=== PATIENT | female | born 1960 | race Caucasian/White ===

== ENCOUNTER → 2016-07-28 | Outpatient (CLI) | payer BC ==
[~2016-07-28] MED LIST: CALC600T36 PO; DOCU-94 PO; FAMO1TAB47 PO; HYT/2 PO; MAGN1CAP4 PO; MRLP17 PO; MULT-663 PO; OXYC1TAB3 PO; SPIR50TA2 PO
--- NOTE | 2016-07-28 11:31 | DIAGNOSTIC IMAGING REPORT ---
RIGHT HIP UNILATERAL 2 VIEWS CLINICAL HISTORY: Right hip pain COMPARISON: None. DISCUSSION: No acute fractures are visualized. There are no erosive or destructive changes. There is a peritrochanteric calcification. This may indicate tendinitis. IMPRESSION: 1. No acute fractures 2. No destructive lesions 3. Peritrochanteric calcification Electronically signed by: Milton Figueroa M.D. 07/28/2016 11:29 AM Dictated Date/Time: 07/28/2016 11:28 AM
== END | disposition home or self-care (01) ==
LOC: C.RAD1850 11:10
PROVIDERS: ATTEND Nurse Practitioner Family
DX: M25.551 Pain in right hip (principal); M25.60 Stiffness of unspecified joint, not elsewhere classified

== ENCOUNTER 2016-10-04 19:39 | Emergency (ER) | payer BC ==
[~2016-10-04] VITALS: Ht 165.1 cm; Wt 56.7 kg
[2016-10-04 19:47] VITALS: TEMP 36.9; Ht 165.1 cm; Wt 56.7 kg
[2016-10-04 21:11] VITALS: O2SAT 98
[2016-10-04 21:20] LABS: BASO % 0.9 %; BASO ABS # 0.05 K/uL (0-0.2); COMPLETE YES; EOS % 0.5 %; HEMATOCRIT 39.4 % (37-47); LYMPH ABS # 1.99 K/uL (1.2-3.4); MEAN CELL VOLUME 88.9 fL (80-100); MEAN CORPUSCULAR HEMOGLOBIN 32.3 pg (25-34); MEAN CORPUSCULAR HGB CONC 36.3 g/dl (32-36); MEAN PLATELET VOLUME 8.5 fL (7.4-10.4); MONO % 7.7 %; NEUT % 56.9 %; PLATELET COUNT 291 K/uL (130-400); RED BLOOD COUNT 4.43 M/uL (4.2-5.4); WHITE BLOOD COUNT 5.85 K/uL (4.8-10.8)
--- NOTE | 2016-10-04 21:26 | DIAGNOSTIC IMAGING REPORT ---
CHEST ONE VIEW PORTABLE CLINICAL HISTORY: Evaluate Fever/Sepsis dyspnea COMPARISON STUDY: 04/24/2016 FINDINGS: The bones soft tissues and hemidiaphragms are normal. The cardiomediastinal silhouette is normal. The lungs are clear. The pulmonary vasculature is normal. IMPRESSION: Negative chest. Electronically signed by: Elroy Lares M.D. 10/04/2016 9:25 PM Dictated Date/Time: 10/04/2016 9:25 PM
[2016-10-04 21:45] LABS: ALT/SGPT 21 U/L (12-78); BLOOD UREA NITROGEN 13 mg/dl (7-18); BUN/CREATININE RATIO 15.4 (10-20); CALCIUM 9.6 mg/dl (8.5-10.1); CARBON DIOXIDE 26 mmol/L (21-32); CHLORIDE 102 mmol/L (98-107); CREATININE 0.81 mg/dl (0.60-1.20); GLUCOSE 96 mg/dl (70-99); SODIUM 137 mmol/L (136-145)
[2016-10-04 21:54] LABS: ALKALINE PHOSPHATASE 100 U/L (45-117)
--- NOTE | 2016-10-04 22:03 | EMERGENCY ROOM VISIT NOTE ---
History Report prepared by Dao: Lisy Car Under the Supervision of: Dr. Fredrick Long D.O. First contact with patient: 20:59 Chief Complaint: CHEST PAIN Stated Complaint: PAIN AND BURNING IN CHEST Nursing Triage Summary: pt states she had a couple sharp pains in her chest a couple hours ago then has had some burning. History of Present Illness The patient is a 56 year old female who presents to the Emergency Room with complaints of resolving chest pain beginning 4 hours prior to arrival. She states that the pain began as a few sharp sensations in her chest and then became a burning sensation. The patient states that the sharpness has resolved and she is experiencing slight burning sensation still. She has been experiencing right sided jaw pain for several weeks. She denies shortness of breath, abdominal pain, leg pain or swelling to lower extremities. The patient is currently taking medication for acid reflux. 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 Review of Systems See HPI for pertinent positives & negatives. A total of 10 systems reviewed and were otherwise negative. Past Medical & Surgical Medical Problems: (1) Acid reflux Family History Patient reports no known family medical history. Social History Smoking Status: Never Smoker Smokeless Tobacco Use: No Marital Status: Housing Status: lives with family Current/Historical Medications Scheduled Calcium W/ Vitamin D (Calcium), 1 TAB PO DAILY Docusate Sodium (Colace), 2 CAP PO QAM Magnesium Oxide (Magnesium), 500 MG PO DAILY Multiple Minerals W/ Vitamins (Citracal Plus), 1 TAB PO DAILY Polyethylene (Miralax), 17 GM PO DAILY Spironolactone (Aldactone), 50 MG PO BID Terazosin Hcl (Hytrin), 2 MG PO DAILY Allergies Coded Allergies: No Known Allergies (Unverified , 10/04/16) Physical Exam Vital Signs Date Time Temp Pulse Resp B/P Pulse Ox O2 Delivery O2 Flow Rate FiO2 10/04/16 21:24 81 10/04/16 21:23 77 20 135/87 100 Room Air 10/04/16 21:11 98 Room Air 10/04/16 19:47 36.9 85 18 151/88 100 Room Air Physical Exam CONSTITUTIONAL/VITAL SIGNS: Reviewed / noted above. GENERAL: Non-toxic in appearance. INTEGUMENTARY: Warm, dry, and [place]. HEAD: Normocephalic. EYES: without scleral icterus or trauma. ENT/OROPHARYNX: clear and moist. LYMPHADENOPATHY/NECK: Is supple without lymphadenopathy or meningismus. RESPIRATORY: Lungs clear and equal. CARDIOVASCULAR: Regular rate and rhythm. GI/ABDOMEN: Soft and nontender. No organomegaly or pulsatile mass. No rebound or guarding. Normal bowel sounds. EXTREMITIES: Warm and well perfused. BACK: No CVA tenderness. NEUROLOGICAL: Intact without focal deficits. PSYCHIATRIC: normal affect. MUSCULOSKELETAL: Normally developed with good muscle tone. Medical Decision & Procedures ER Provider Diagnostic Interpretation: X ray results and stated below per my interpretation and radiology interpretation. CHEST ONE VIEW PORTABLE CLINICAL HISTORY: Evaluate Fever/Sepsis dyspnea COMPARISON STUDY: 04/24/2016 FINDINGS: The bones soft tissues and hemidiaphragms are normal. The cardiomediastinal silhouette is normal. The lungs are clear. The pulmonary vasculature is normal. IMPRESSION: Negative chest. Electronically signed by: Elroy Lares M.D. 10/04/2016 9:25 PM Dictated Date/Time: 10/04/2016 9:25 PM Laboratory Results 10/04/16 21:10 Red Blood Count 4.43, Mean Corpuscular Volume 88.9, Mean Corpuscular Hemoglobin 32.3, Mean Corpuscular Hemoglobin Concent 36.3, Mean Platelet Volume 8.5, Neutrophils (%) (Auto) 56.9, Lymphocytes (%) (Auto) 34.0, Monocytes (%) (Auto) 7.7, Eosinophils (%) (Auto) 0.5, Basophils (%) (Auto) 0.9, Neutrophils # (Auto) 3.33, Lymphocytes # (Auto) 1.99, Monocytes # (Auto) 0.45, Eosinophils # (Auto) 0.03, Basophils # (Auto) 0.05 10/04/16 21:10 10/04/16 21:46 Test 10/04/16 21:10 10/04/16 21:46 White Blood Count 5.85 K/uL (4.8-10.8) Red Blood Count 4.43 M/uL (4.2-5.4) Hemoglobin 14.3 g/dL (12.0-16.0) Hematocrit 39.4 % (37-47) Mean Corpuscular Volume 88.9 fL (80-100) Mean Corpuscular Hemoglobin 32.3 pg (25-34) Mean Corpuscular Hemoglobin Concent 36.3 g/dl (32-36) Platelet Count 291 K/uL (130-400) Mean Platelet Volume 8.5 fL (7.4-10.4) Neutrophils (%) (Auto) 56.9 % Lymphocytes (%) (Auto) 34.0 % Monocytes (%) (Auto) 7.7 % Eosinophils (%) (Auto) 0.5 % Basophils (%) (Auto) 0.9 % Neutrophils # (Auto) 3.33 K/uL (1.4-6.5) Lymphocytes # (Auto) 1.99 K/uL (1.2-3.4) Monocytes # (Auto) 0.45 K/uL (0.11-0.59) Eosinophils # (Auto) 0.03 K/uL (0-0.5) Basophils # (Auto) 0.05 K/uL (0-0.2) RDW Standard Deviation 39.4 fL (36.4-46.3) RDW Coefficient of Variation 12.2 % (11.5-14.5) Immature Granulocyte % (Auto) 0.0 % Immature Granulocyte # (Auto) 0.00 K/uL (0.00-0.02) Anion Gap 9.0 mmol/L (3-11) Est Creatinine Clear Calc Drug Dose 71.1 ml/min Estimated GFR () 95.4 Estimated GFR (Non- 82.3 BUN/Creatinine Ratio 15.4 (10-20) Calcium Level 9.6 mg/dl (8.5-10.1) Total Bilirubin 0.3 mg/dl (0.2-1) Alanine Aminotransferase (ALT/SGPT) 21 U/L (12-78) Alkaline Phosphatase 100 U/L (45-117) Creatine Kinase MB 0.6 ng/ml (0.5-3.6) Creatine Kinase MB Ratio (0-3.0) Troponin I < 0.015 ng/ml (0-0.045) Total Protein 8.1 gm/dl (6.4-8.2) Albumin 4.4 gm/dl (3.4-5.0) Lipase 310 U/L (73-393) Thyroid Stimulating Hormone (TSH) 2.430 uIu/ml (0.300-4.500) Prothrombin Time 10.7 SECONDS (9.0-12.0) Prothromb Time International Ratio 1.0 (0.9-1.1) Activated Partial Thromboplast Time 28.4 SECONDS (21.0-31.0) Partial Thromboplastin Ratio 1.1 Laboratory results as stated above per my review. ECG Indication: chest pain Rate (beats per minute): 77 Rhythm: normal sinus Findings: no acute ischemic change, no ectopy ED Course 2107: Previous medical records were reviewed. The patient was evaluated in room A9. A complete history and physical examination was performed. 2211: On reevaluation, the patient is hemodynamically stable. I discussed the results and findings with the patient. She verbalized agreement of the treatment plan. She was discharged home. Medical Decision the differential was considered includes acute myocardial infarction, acute coronary syndrome, myocarditis, pericarditis, pericardial effusions /tamponad, esophageal perforation, thoracic aortic dissection, pulmonary embolism, pneumonia, pneumothorax, pancreatitis, shingles, acute cholecystitis, perforated abdominal viscus. This is a 56 female who presents to the ED with a chief complaint of chest discomfort. The patient states that her symptoms started around 5 PM. She states that it was a sharp pain in the left mid chest area as well as a burning sensation. She denied any associated symptoms such as shortness of breath, fevers, palpitations, lightheadedness or dizziness. She denies any family history or personal history of cardiac disease. Eyes any respiratory for DVT. Her vital signs are normal. Physical exam was normal as well. EKG shows a normal sinus rhythm without ectopy or acute injury. CBC is normal. A chest x- ray did not show acute disease. Blood work including CBC, chemistry panel and troponin were normal. The patient was told results the test per she is felt to be stable for discharge and outpatient follow-up. Impression Primary Impression: Intermittent left-sided chest pain Scribe Attestation The scribe's documentation has been prepared under my direction and personally reviewed by me in its entirety. I confirm that the note above accurately reflects all work, treatment, procedures, and medical decision making performed by me. Departure Information Dispostion Home / Self-Care Referrals Samanta Briceno (PCP) Forms HOME CARE DOCUMENTATION FORM, IMPORTANT VISIT INFORMATION Patient Instructions Chest Pain - [facility], [facility] Additional Instructions Follow-up with your doctor for further care and evaluation in 1-2 days if symptoms persist. Return to the emergency department for worsening or new symptoms or any concerns. You have been examined and treated today on an emergency basis only. This is not a substitute for, or an effort to provide, complete comprehensive medical care. It is impossible to recognize and treat all injuries or illnesses in a single emergency department visit. It is therefore important that you follow up closely with your doctor. Call as soon as possible for an appointment.
[2016-10-04 22:11] LABS: PARTIAL THROMBOPLASTIN RATIO 1.1; PROTHROMBIN TIME (PATIENT) 10.7 SECONDS (9.0-12.0)
[2016-10-04] MEDS ORDERED: MRLP17 PO (22:11)
[2016-10-04] MEDS ORDERED: MAGN1CAP4 PO (22:11)
[2016-10-04] MEDS ORDERED: MULT-663 PO (22:11)
[2016-10-04] MEDS ORDERED: SPIR50TA2 PO (22:11)
[2016-10-04] MEDS ORDERED: CALC600T36 PO (22:11)
[2016-10-04] MEDS ORDERED: HYT/2 PO (22:11)
[2016-10-04] MEDS ORDERED: DOCU-94 PO (22:11)
[2016-10-04 22:16] LABS: AST/SGOT 15 U/L (15-37)
[2016-10-04 22:28] VITALS: BP 118/70; PULSE 76; O2SAT 98
== END 2016-10-04 22:29 | disposition home or self-care (01) ==
LOC: C.EDB 19:40 → C.EDC 22:29
DX: R07.89 Other chest pain (principal); K21.9 Gastro-esophageal reflux disease without esophagitis

== ENCOUNTER → 2016-10-20 | Outpatient (CLI) | payer BC | END | disposition home or self-care (01) | LOC: C.PAPS 16:37 | PROVIDERS: ATTEND Obstetrics & Gynecology | DX: Z01.419 Encounter for gynecological examination (general) (routine) without abnormal findings (principal) ==

== ENCOUNTER 2016-12-27 18:02 | Emergency (ER) | payer BC ==
[~2016-12-27] VITALS: Ht 165.1 cm; Wt 58.1 kg
[~2016-12-27 18:02] MED LIST changes: -FAMO1TAB47 PO; -OXYC1TAB3 PO
[2016-12-27 18:05] VITALS: TEMP 36.5; Ht 165.1 cm; Wt 58.1 kg
[2016-12-27] MEDS ORDERED: OXYCODONE HCL IR 5 MG TAB (IMMEDIATE RELEASE) PO STA (18:32)
--- NOTE | 2016-12-27 19:33 | DIAGNOSTIC IMAGING REPORT ---
RIGHT WRIST MIN 3 VIEWS ROUTINE CLINICAL HISTORY: Right wrist pain status post trauma COMPARISON: None. DISCUSSION: No acute fractures or dislocations are visualized. There is a longitudinal lucency within the distal radius which likely is developmental. If the patient has persistent pain, repeat study in 7-10 days is recommended. IMPRESSION: No acute fractures or dislocations identified. Longitudinal lucency within the distal radius likely developmental. If the patient has persistent pain, then repeat radiography in 7-10 days would be recommended. Electronically signed by: Milton Figueroa M.D. 12/27/2016 7:32 PM Dictated Date/Time: 12/27/2016 7:31 PM
--- NOTE | 2016-12-27 19:34 | DIAGNOSTIC IMAGING REPORT ---
RIGHT HUMERUS MIN 2 VIEWS ROUTINE CLINICAL HISTORY: Right upper arm pain status post trauma COMPARISON: None. DISCUSSION: There is an acute fracture through the greater tuberosity. No dislocation is visualized. IMPRESSION: Acute proximal humeral fracture involving the greater tuberosity. Electronically signed by: Milton Figueroa M.D. 12/27/2016 7:33 PM Dictated Date/Time: 12/27/2016 7:32 PM
--- NOTE | 2016-12-27 19:35 | DIAGNOSTIC IMAGING REPORT ---
RIGHT SHOULDER MIN 2 VIEWS ROUTINE CLINICAL HISTORY: Right shoulder pain status post trauma COMPARISON: None. DISCUSSION: There is an acute proximal humeral fracture involving the greater tuberosity. There is no dislocation. IMPRESSION: Acute proximal humeral fracture involving the greater tuberosity Electronically signed by: Milton Figueroa M.D. 12/27/2016 7:34 PM Dictated Date/Time: 12/27/2016 7:33 PM
--- NOTE | 2016-12-27 19:36 | DIAGNOSTIC IMAGING REPORT ---
RIGHT KNEE 2 VIEWS CLINICAL HISTORY: Right knee pain status post trauma COMPARISON: None. DISCUSSION: No fractures or dislocations are visualized. There is no radiographic evidence of a joint effusion. IMPRESSION: No fractures identified. Electronically signed by: Milton Figueroa M.D. 12/27/2016 7:35 PM Dictated Date/Time: 12/27/2016 7:34 PM
--- NOTE | 2016-12-27 19:42 | EMERGENCY ROOM VISIT NOTE ---
ED Visit Note First contact with patient: 18:24 Staff note: I have reviewed the Patients chart and have discussed this case with my PA. I generally agree with the ED note and findings.
[2016-12-27] MEDS ORDERED: OXYC1TAB3 PO (19:59)
[2016-12-27] MEDS ORDERED: OXYCODONE IR HOME PACK PO ONE (20:00)
[2016-12-27 20:21] VITALS: BP 107/72; PULSE 72; O2SAT 97
--- NOTE | 2016-12-28 00:37 | EMERGENCY ROOM VISIT NOTE ---
History First contact with patient: 18:23 Chief Complaint: SHOULDER PAIN Stated Complaint: FELL HARD ON RT SHOULDER,CUT RT HAND/KNEE & RT ARM History of Present Illness The patient is a 56 year old female who presents to the Emergency Room with complaints of fall that occurred about 45 minutes prior to arrival. The patient states that she was coming down a paved hill, when she slipped, fell, and primarily landed onto her right side. She did not strike her head or lose consciousness. Most of her discomfort is in her right shoulder. The patient has abrasions to her hand and knee on the right as well. She rates her current discomfort a 7/10. She is not having numbness or paresthesias. No difficulty breathing. She cannot move her right arm because of pain. She does not have previous injury to the right shoulder before today. Review of Systems More than 10 systems were reviewed and otherwise negative with the exception of history of present illness. Past Medical/Surgical History Medical Problems: (1) Acid reflux Family History Patient reports no known family medical history. No pertinent family history Social History Smoking Status: Never Smoker Marital Status: Housing Status: lives with family Current/Historical Medications Scheduled Calcium W/ Vitamin D (Calcium), 1 TAB PO DAILY Docusate Sodium (Colace), 2 CAP PO QAM Magnesium Oxide (Magnesium), 500 MG PO DAILY Oxycodone Immediate Rel Tab (Roxicodone Ir), 1-2 TAB PO Q6 Polyethylene (Miralax), 17 GM PO DAILY Spironolactone (Aldactone), 50 MG PO BID Terazosin Hcl (Hytrin), 2 MG PO DAILY Allergies Coded Allergies: Doxycycline (Unverified Adverse Reaction, Intermediate, UPSET STOMACH, 06/04) Physical Exam Vital Signs Date Time Temp Pulse Resp B/P (MAP) Pulse Ox O2 Delivery O2 Flow Rate FiO2 12/27/16 20:21 72 16 107/72 97 Room Air 12/27/16 18:05 36.5 62 20 129/86 Room Air Pain Rating (0-10): 7.0 Physical Exam VITALS: Vitals are noted on the nurse's note and reviewed by myself. Vital signs stable. GENERAL: Well-developed, well-nourished, white female who is uncomfortable but not toxic. HEAD: Normocephalic atraumatic. EARS: External ear normal. External auditory canals clear, tympanic membranes pearly kapoor without erythema or effusion bilaterally. EYES: Pupils equal round and reactive to light and accommodation. Conjunctivae without injection, sclerae without icterus. Extraocular movements intact. NOSE: Patent, turbinates without inflammation or discharge. MOUTH: Mucous membranes moist. Tonsils are not enlarged. Pharynx without erythema, blood, or exudate. Uvula midline. Airway patent. NECK: Supple without nuchal rigidity. No lymphadenopathy. No thyromegaly. Cervical spine is nontender. HEART: Regular rate and rhythm without murmurs gallops or rubs. LUNGS: Clear to auscultation bilaterally without wheezes, rales or rhonchi. No retractions or accessory muscle use. ABDOMEN: Positive normal bowel sounds x 4. Soft, nontender, without masses or organomegaly. No guarding or rebound tenderness. MUSCULOSKELETAL: Obvious tenderness appreciated over the proximal humerus on the right. The patient is not able to perform range of motion secondary to discomfort at the right shoulder. There are superficial abrasions appreciated over the right palm with tenderness of the right wrist. Additionally there are superficial abrasions over the right knee with tenderness diffusely of the right knee. Negative anterior posterior drawer. No ligamentous laxity. No obvious lacerations throughout NEURO: Patient was alert and oriented to person place and time. CN II through XII grossly intact. Medical Decision & Procedures ER Provider Diagnostic Interpretation: RIGHT KNEE 2 VIEWS CLINICAL HISTORY: Right knee pain status post trauma COMPARISON: None. DISCUSSION: No fractures or dislocations are visualized. There is no radiographic evidence of a joint effusion. IMPRESSION: No fractures identified. RIGHT HUMERUS MIN 2 VIEWS ROUTINE CLINICAL HISTORY: Right upper arm pain status post trauma COMPARISON: None. DISCUSSION: There is an acute fracture through the greater tuberosity. No dislocation is visualized. IMPRESSION: Acute proximal humeral fracture involving the greater tuberosity. RIGHT SHOULDER MIN 2 VIEWS ROUTINE CLINICAL HISTORY: Right shoulder pain status post trauma COMPARISON: None. DISCUSSION: There is an acute proximal humeral fracture involving the greater tuberosity. There is no dislocation. IMPRESSION: Acute proximal humeral fracture involving the greater tuberosity RIGHT WRIST MIN 3 VIEWS ROUTINE CLINICAL HISTORY: Right wrist pain status post trauma COMPARISON: None. DISCUSSION: No acute fractures or dislocations are visualized. There is a longitudinal lucency within the distal radius which likely is developmental. If the patient has persistent pain, repeat study in 7-10 days is recommended. IMPRESSION: No acute fractures or dislocations identified. Longitudinal lucency within the distal radius likely developmental. If the patient has persistent pain, then repeat radiography in 7-10 days would be recommended. Medications Administered Medications (Trade) Dose Ordered Sig/Roseanna Route Start Time Stop Time Status Last Admin Dose Admin Oxycodone HCl (Roxicodone Immediate Rel Tab) 5 mg NOW STAT PO 12/27/16 18:32 12/27/16 18:34 DC 12/27/16 18:48 5 MG Oxycodone HCl (Roxicodone Immediate Rel 5MG Home Pack) 1 homepack UD ONCE PO 12/27/16 20:00 12/27/16 20:01 DC 12/27/16 20:19 1 HOMEPACK ED Course Physical exam and history were performed. Nursing notes and EMR were reviewed. Patient appears to have fallen and suffered injuries to the right side of her body. On exam she primarily has tenderness of her right shoulder, right wrist, and right knee. The patient was given oxycodone by mouth. X-rays were obtained. The patient's x-rays are as above and were reviewed by myself and radiology. She appears to have a proximal humerus fracture, which is the likely cause of her right shoulder pain. She will be placed in an arm sling for comfort. She will be given a continuation prescription of oxycodone. The patient will ultimately need to follow with orthopedics for repeat imaging of her wrist as well as for options of care regarding or arm. The patient was thoroughly invited back to the ER with any new, worsening, or concerning symptoms. The patient voiced understanding and rated her discomfort a 6/10 at the time of departure. The chart was completed utilizing [employer] Speech Voice Recognition Software. Grammatical errors, random word insertions, pronoun errors, and incomplete sentences are an occasional consequence of this system due to software limitations, ambient noise, and hardware issues. Any formal questions or concerns about the content, text, or information contained within the body of this dictation should be directly addressed to the provider for clarification. . Medical Decision Differential diagnosis includes, but is not limited to: Sprain, strain, fracture , dislocation, subluxation, contusion, and others Impression Primary Impression: Right humeral fracture Departure Information Dispostion Home / Self-Care Condition GOOD Prescriptions Oxycodone Immediate Rel Tab (ROXICODONE IR) 5 Mg Tab 1-2 TAB PO Q6 for Pain, #24 TAB Initial treatment Prov: Micheal Sequeira PA-C 12/27/16 Referrals Sanket Voss M.D. Forms HOME CARE DOCUMENTATION FORM, IMPORTANT VISIT INFORMATION Patient Instructions My [facility] Additional Instructions You were seen and evaluated today on an emergency basis only. This is not a substitute for, or an effort to provide, complete comprehensive medical care. It is not possible to recognize and treat all injuries or illnesses in a single emergency department visit. For this reason it is recommended that you followup with [facility] , Dr. Voss's office, first thing in the morning to arrange a follow-up in the next few days. Let the office know you were seen in the ER to help make her appointment. For baseline pain relief you may alternate ibuprofen and acetaminophen every 4 hours for pain control. Take 600 mg ibuprofen (Advil) and then 4 hours later take 1000 mg acetaminophen (Tylenol). Do not take more than 3000 mg acetaminophen in a single day. Oxycodone (OxyIR) 5mg: Take ONE or TWO pills every SIX hours for breakthrough pain. Avoid alcohol, operating machinery or dangerous equipment, working on ladders or roofs, DRIVING, or situations where being under the influence may be dangerous. It is recommended to use an [id number] stool softener such as Colace, 100mg twice daily while taking this medication to avoid constipation. Wear your arm sling at all times You are welcome to return to the emergency department anytime with new, worsening, or concerning symptoms.
== END 2016-12-27 20:24 | disposition home or self-care (01) ==
LOC: C.EDB 18:02 → C.EDD 20:24
DX: S42.251A Displaced fracture of greater tuberosity of right humerus, initial encounter for closed fracture (principal); S60.511A Abrasion of right hand, initial encounter; S80.211A Abrasion, right knee, initial encounter; W17.81XA Fall down embankment (hill), initial encounter; W22.09XA Striking against other stationary object, initial encounter

== ENCOUNTER → 2017-01-11 | Outpatient (CLI) | payer BC ==
[~2017-01-11] MED LIST changes: +FAMO1TAB47 PO; +GADAVIST IV PRN; -MULT-663 PO; +OXYC1TAB3 PO
--- NOTE | 2017-01-11 09:13 | DIAGNOSTIC IMAGING REPORT ---
MRI OF THE BRAIN WITHOUT AND WITH IV CONTRAST CLINICAL HISTORY: Parosmia, gait ABNORMALITY, DIZZINESS AND GIDDINESS, FALL COMPARISON STUDY: 8.5 TECHNIQUE: Utilizing a 1.5 Wen magnet and dedicated coil, multiplanar, multiecho imaging of the brain was performed pre and postcontrast administration. IV administration of 5 mL of Gadavist contrast was uneventful. FINDINGS: Signal characteristics the cerebellar as well as cerebral hemispheres are unremarkable. No evidence for abnormal postcontrast enhancement. Diffusion images are negative for an acute ischemic event. Ventricular system is midline. IMPRESSION: Negative study. Electronically signed by: Elroy Lares M.D. 01/11/2017 9:12 AM Dictated Date/Time: 01/11/2017 9:00 AM
== END | disposition home or self-care (01) ==
LOC: C.MRI 07:44
PROVIDERS: ATTEND Nurse Practitioner Family
DX: R43.1 Parosmia (principal); R26.89 Other abnormalities of gait and mobility; R42 Dizziness and giddiness; W18.40XA Slipping, tripping and stumbling without falling, unspecified, initial encounter; Z86.69 Personal history of other diseases of the nervous system and sense organs

== ENCOUNTER 2017-01-24 15:53 | Emergency (ER) | payer BC ==
[~2017-01-24] VITALS: Ht 165.1 cm; Wt 57.0 kg
[~2017-01-24 15:53] MED LIST changes: -FAMO1TAB47 PO; -GADAVIST IV PRN
[2017-01-24 15:58] VITALS: TEMP 37; Ht 165.1 cm; Wt 57.0 kg
[2017-01-24] MEDS ORDERED: FAMO1TAB47 PO (16:16)
--- NOTE | 2017-01-24 16:34 | EMERGENCY ROOM VISIT NOTE ---
History Report prepared by Dao: Radha Parks Under the Supervision of: Dr. Terrence Mendez M.D. First contact with patient: 16:11 Chief Complaint: CHEST PAIN Stated Complaint: TIGHTNESS IN CHEST,JAW PAIN,UPSET STOMACH,EAR PAIN History of Present Illness The patient is a 56 year old female who presents to the Emergency Room with complaints of intermittent chest pain and tightness beginning 9 hours ago. The patient states that her pain became constant 5 hours ago and [facility] She reports that they sent her to the ED to be evaluated. She complains of jaw pain that has been present for the last year, right sided back pain, ear pain that is not new, neck pain from an injury yesterday, and lightheadedness when she bends over. The patient denies any calf pain, headache, shortness of breath, pain with breathing, pain and swelling of the legs, and swelling of the arm. She notes that she broke 2 bones in her right arm 1 month ago after a fall. She reports that she did not lose consciousness with the fall but everything went black after the fall. The patient states that she is scheduled to start physical therapy this week. She reports that she had zapping chest pain 1 year ago and got a stress test that was normal. She notes that she takes medication for acid reflux and has a history of Raynaud's syndrome. The patient reports a family history of mitro valve prolapse, angina, and stroke. She states that she is not on blood thinners. She notes that she has been more stressed out lately than usual due to her arm fracture and her daughter. She states that she had an MRI shortly after her fall due to a bad smell that she experienced that was normal. Source of History: patient Onset: 9 hours ago Position: chest Quality: other (tightness) Timing: intermittent Associated Symptoms: + neck pain, + back pain, No headache, No SOB Note: She complains of jaw pain that has been present for the last year, ear pain that is not new, and lightheadedness when she bends over. The patient denies any calf pain, pain with breathing, pain and swelling of the legs, and swelling of the arm. Review of Systems See HPI for pertinent positives & negatives. A total of 10 systems reviewed and were otherwise negative. Past Medical & Surgical Medical Problems: (1) Acid reflux Old medical records were reviewed. Nurse's notes were reviewed and I agree with. Family History Patient reports no known family medical history. Social History Smoking Status: Never Smoker Marital Status: Housing Status: lives with family Current/Historical Medications Scheduled Calcium W/ Vitamin D (Calcium), 1 TAB PO DAILY Docusate Sodium (Colace), 2 CAP PO QAM Famotidine (Famotidine), 20 MG PO BID Magnesium Oxide (Magnesium), 500 MG PO DAILY Polyethylene (Miralax), 17 GM PO DAILY Spironolactone (Aldactone), 50 MG PO BID Terazosin Hcl (Hytrin), 2 MG PO DAILY Allergies Coded Allergies: Doxycycline (Verified Adverse Reaction, Intermediate, UPSET STOMACH, ) Physical Exam Vital Signs Date Time Temp Pulse Resp B/P (MAP) Pulse Ox O2 Delivery O2 Flow Rate FiO2 01/24/17 18:40 72 18 107/68 99 01/24/17 17:31 78 18 117/75 98 Room Air 01/24/17 16:14 81 01/24/17 15:58 37.0 82 18 136/77 100 Room Air Physical Exam General: Well developed well nourished in no acute distress, breathing comfortably on room air. Normal speech. Non-ill appearing middle aged female. HEENT: Normal cephalic atraumatic. Pupils are equal round and reactive to light. Extraocular movements are intact. Oropharynx is pink with moist mucous membranes. No swelling of the mouth lips or tongue. Neck: Supple with a midline trachea. No meningeal signs or stiffness, no JVD or bruits. No Stridor. Chest: Clear to auscultation bilaterally. No wheezes or rhonchi. No increased work of breathing. Heart: regular rate and rhythm. Abdomen: Soft nontender, nondistended without rebound guarding or rigidity. Extremities: No cyanosis clubbing or edema. No calf tenderness or assymetry. Mild bruising of right elbow from healing injury, normal motor and sensation distally, normal pulse exam. Spine/Back. Non tender to palpation. No CVA tenderness Skin: Good turgor without rashes. Neurologic exam: Cranial nerves two through 12 are intact. Motor and sensation are intact and symmetrical throughout. Medical Decision & Procedures ER Provider Diagnostic Interpretation: Radiology results as stated below per my review and radiologist interpretation: SINGLE VIEW CHEST FINDINGS: An AP, portable, upright chest radiograph is compared to study dated 10/04/2016 and correlated with chest CT dated 04/24/2016. The examination is degraded by portable technique and patient rotation. The cardiomediastinal silhouette is unremarkable. The lungs and pleural spaces are clear. No pneumothorax is seen. The skeletal structures are osteopenic. There is an impacted fracture of the right humeral neck which extends through the greater tuberosity of the humeral head. The remainder of the bony thorax is grossly intact. IMPRESSION: 1. No acute cardiopulmonary abnormality. 2. There is an impacted fracture of the right humeral head and neck as detailed above. Electronically signed by: Tuan Duarte M.D. 01/24/2017 5:12 PM Dictated Date/Time: 01/24/2017 5:[address] ANGIOGRAM OF THE CHEST FINDINGS: Thyroid: Imaged portions of the thyroid gland are normal in size and attenuation. Thoracic aorta: The thoracic aorta is normal in caliber and demonstrates standard 3-vessel arch anatomy. No dissection is seen. Pulmonary vasculature: The pulmonary trunk is normal in caliber. There are no filling defects identified in main, lobar, or segmental pulmonary branches to suggest pulmonary embolus. Heart: The heart is normal in size and configuration, and without pericardial effusion. Lungs and pleural spaces: There is no airspace consolidation or pleural effusion. The trachea and central airways are clear. Linear atelectasis is incidentally noted at the left lung base. Mediastinum: There is no mediastinal lymphadenopathy. Mami: Clear. Axillae: There is no axillary lymphadenopathy. Upper abdomen: Partially visualized upper abdominal viscera is within normal limits. Skeletal structures: The skeletal structures are osteopenic. Again seen is an impacted fracture of the right humeral neck which extends through the greater tuberosity of the humeral head. No lytic or blastic bony lesions are seen. IMPRESSION: 1. There is no evidence of pulmonary embolus in the main, lobar, or segmental pulmonary arteries. 2. The lungs are clear. 3. A right proximal humeral fracture is again noted. Electronically signed by: Tuan Duarte M.D. 01/24/2017 6:16 PM Dictated Date/Time: 01/24/2017 6:13 PM Laboratory Results 01/24/17 16:55 Red Blood Count 4.49, Mean Corpuscular Volume 88.0, Mean Corpuscular Hemoglobin 31.6, Mean Corpuscular Hemoglobin Concent 35.9, Mean Platelet Volume 7.8, Neutrophils (%) (Auto) 75.9, Lymphocytes (%) (Auto) 19.1, Monocytes (%) (Auto) 4.5, Eosinophils (%) (Auto) 0.1, Basophils (%) (Auto) 0.3, Neutrophils # (Auto) 5.19, Lymphocytes # (Auto) 1.31, Monocytes # (Auto) 0.31, Eosinophils # (Auto) 0.01, Basophils # (Auto) 0.02 01/24/17 16:20 Test 01/24/17 16:20 01/24/17 16:27 01/24/17 16:55 01/24/17 17:01 Anion Gap 9.0 mmol/L (3-11) Est Creatinine Clear Calc Drug Dose 62.9 ml/min Estimated GFR () 81.8 Estimated GFR (Non- 70.6 BUN/Creatinine Ratio 11.3 (10-20) Calcium Level 9.6 mg/dl (8.5-10.1) Total Bilirubin 0.6 mg/dl (0.2-1) Direct Bilirubin 0.1 mg/dl (0-0.2) Aspartate Amino Transf (AST/SGOT) 16 U/L (15-37) Alanine Aminotransferase (ALT/SGPT) 23 U/L (12-78) Alkaline Phosphatase 103 U/L (45-117) Total Creatine Kinase 63 U/L (26-192) Creatine Kinase MB < 0.5 ng/ml (0.5-3.6) Troponin I < 0.015 ng/ml (0-0.045) Total Protein 8.3 gm/dl (6.4-8.2) Albumin 4.6 gm/dl (3.4-5.0) Lipase 308 U/L (73-393) Creatine Kinase MB Ratio (0-3.0) White Blood Count 6.85 K/uL (4.8-10.8) Red Blood Count 4.49 M/uL (4.2-5.4) Hemoglobin 14.2 g/dL (12.0-16.0) Hematocrit 39.5 % (37-47) Mean Corpuscular Volume 88.0 fL (80-100) Mean Corpuscular Hemoglobin 31.6 pg (25-34) Mean Corpuscular Hemoglobin Concent 35.9 g/dl (32-36) Platelet Count 270 K/uL (130-400) Mean Platelet Volume 7.8 fL (7.4-10.4) Neutrophils (%) (Auto) 75.9 % Lymphocytes (%) (Auto) 19.1 % Monocytes (%) (Auto) 4.5 % Eosinophils (%) (Auto) 0.1 % Basophils (%) (Auto) 0.3 % Neutrophils # (Auto) 5.19 K/uL (1.4-6.5) Lymphocytes # (Auto) 1.31 K/uL (1.2-3.4) Monocytes # (Auto) 0.31 K/uL (0.11-0.59) Eosinophils # (Auto) 0.01 K/uL (0-0.5) Basophils # (Auto) 0.02 K/uL (0-0.2) RDW Standard Deviation 39.2 fL (36.4-46.3) RDW Coefficient of Variation 12.1 % (11.5-14.5) Immature Granulocyte % (Auto) 0.1 % Immature Granulocyte # (Auto) 0.01 K/uL (0.00-0.02) D-Dimer 660 ug/L FEU (0-500) Bedside D-Dimer > 450 ng/mlFEU (0-450) Bedside Troponin I < 0.030 ng/ml (0-0.045) Laboratory studies as stated above per my review. ECG Indication: chest pain Rate (beats per minute): 79 Rhythm: normal sinus Findings: no acute ischemic change, no ectopy Comparison ECG Date: 10/04/16 Change: no significant change Change: EKG #2: Normal Sinus Rhythm, 74, no ischemic changes, no ectopy, no changes compared to EKG 1. ED Course 1611: Past medical records reviewed. The patient was evaluated in room C3, and a complete history and physical examination were performed. 1726: I reevaluated the patient. She is resting comfortably. 1737: I reevaluated the patient and she is resting comfortably. I explained the study and her and her consent. 1825: I reevaluated the patient. She is feeling better. 1836: Upon reevaluation, the patient is doing well. I discussed the results and treatment plan with the patient. She verbalized agreement of the treatment plan. The patient was discharged home. Medical Decision Differential diagnosis includes acute coronary syndrome, arrhythmia, GERD, electrolyte or metabolic abnormality, PE. This patient comes in as described above. She was placed from . She is here for treatment and evaluation of episode of chest pain. She feels better at present. EKG is nonischemic appearing. She was given aspirin prior to arrival. She has had some vague chronic chest pain for quite some time including jaw pain. She did have chest pain and jaw pain last year and by her report had a negative stress test. IV access established and multiple blood testing was obtained. She also chest x-ray and EKG and cardiac biomarkers and d -dimer. Her workup here was unremarkable. She has 2 EKGs which are nonischemic appearing and no change from 1 compared to the other. Her cardiac biomarkers are not elevated. Her d-dimer was mildly elevated and in light of this, I did do a chest CT there is no evidence of PE or other pathology. I talked to the patient and her at length she seems very anxious and has multiple vague complaints. Her symptoms are not classic for cardiac disease. She's had symptoms like this before and a lot of these have been more chronic. She's had a stress test last year which was unremarkable according to the patient at this point she will be discharged to home and should follow-up with her doctor tomorrow for recheck she and her agree with the plan. I encouraged her return to the ER if: she has worsening of symptoms, further chest pain, shortness of breath, any new problems or concerns. Medication Reconciliation: I attest that I have personally reviewed the patient' s current medication list. Blood pressure Screening: Patient was found to have normal blood pressure on screening and does not require follow-up. Impression Primary Impression: Precordial chest pain Scribe Attestation The scribe's documentation has been prepared under my direction and personally reviewed by me in its entirety. I confirm that the note above accurately reflects all work, treatment, procedures, and medical decision making performed by me. Departure Information Dispostion Home / Self-Care Referrals Samanta Briceno (PCP) Forms HOME CARE DOCUMENTATION FORM, IMPORTANT VISIT INFORMATION Patient Instructions My [facility] Additional Instructions Rest Return if: Worsening of symptoms, recurrence of symptoms, shortness of breath, fever or chills, any new problems or concerns. Follow-up with your doctor in 1-2 days for recheck
[2017-01-24 17:05] LABS: ALKALINE PHOSPHATASE 103 U/L (45-117); ALT/SGPT 23 U/L (12-78); BLOOD UREA NITROGEN 10 mg/dl (7-18); BUN/CREATININE RATIO 11.3 (10-20); CALCIUM 9.6 mg/dl (8.5-10.1); CARBON DIOXIDE 25 mmol/L (21-32); CHLORIDE 101 mmol/L (98-107); CREATININE 0.92 mg/dl (0.60-1.20); GLUCOSE 107 mg/dl (70-99)
[2017-01-24 17:07] LABS: BASO % 0.3 %; BASO ABS # 0.02 K/uL (0-0.2); COMPLETE YES; EOS % 0.1 %; HEMATOCRIT 39.5 % (37-47); IG% 0.1 %; LYMPH % 19.1 %; LYMPH ABS # 1.31 K/uL (1.2-3.4); MEAN CORPUSCULAR HEMOGLOBIN 31.6 pg (25-34); MEAN CORPUSCULAR HGB CONC 35.9 g/dl (32-36); MEAN PLATELET VOLUME 7.8 fL (7.4-10.4); MONO % 4.5 %; NEUT % 75.9 %; PLATELET COUNT 270 K/uL (130-400); RED BLOOD COUNT 4.49 M/uL (4.2-5.4); WHITE BLOOD COUNT 6.85 K/uL (4.8-10.8)
--- NOTE | 2017-01-24 17:14 | DIAGNOSTIC IMAGING REPORT ---
SINGLE VIEW CHEST CLINICAL HISTORY: Atypical chest pain. FINDINGS: An AP, portable, upright chest radiograph is compared to study dated 10/04/2016 and correlated with chest CT dated 04/24/2016. The examination is degraded by portable technique and patient rotation. The cardiomediastinal silhouette is unremarkable. The lungs and pleural spaces are clear. No pneumothorax is seen. The skeletal structures are osteopenic. There is an impacted fracture of the right humeral neck which extends through the greater tuberosity of the humeral head. The remainder of the bony thorax is grossly intact. IMPRESSION: 1. No acute cardiopulmonary abnormality. 2. There is an impacted fracture of the right humeral head and neck as detailed above. Electronically signed by: Tuan Duarte M.D. 01/24/2017 5:12 PM Dictated Date/Time: 01/24/2017 5:11 PM
[2017-01-24 17:18] LABS: POTASSIUM 4.2 mmol/L (3.5-5.1); SODIUM 135 mmol/L (136-145)
[2017-01-24 17:20] LABS: POINT OF CARE TROPONIN I < 0.030 ng/ml (0-0.045)
[2017-01-24 17:27] LABS: AST/SGOT 16 U/L (15-37)
[2017-01-24] MEDS ORDERED: OPTIRAY 320 IV PRN (18:15)
--- NOTE | 2017-01-24 18:18 | DIAGNOSTIC IMAGING REPORT ---
CT ANGIOGRAM OF THE CHEST CLINICAL HISTORY: Chest tightness. COMPARISON STUDY: Chest x-ray dated 01/24/2017. Chest CT dated 04/24/2016. TECHNIQUE: Following the IV administration of 83 cc of Optiray 320, CT angiogram of the chest was performed from the upper abdomen to the thoracic inlet utilizing the pulmonary embolus protocol. Images are reviewed in the axial, sagittal, and coronal planes. 3-D MIPS images are created and assessed. IV contrast was administered without complication. The examination is degraded by streak artifact from the right arm which could not be elevated above the chest. CT DOSE: 272.50 mGy.cm FINDINGS: Thyroid: Imaged portions of the thyroid gland are normal in size and attenuation. Thoracic aorta: The thoracic aorta is normal in caliber and demonstrates standard 3-vessel arch anatomy. No dissection is seen. Pulmonary vasculature: The pulmonary trunk is normal in caliber. There are no filling defects identified in main, lobar, or segmental pulmonary branches to suggest pulmonary embolus. Heart: The heart is normal in size and configuration, and without pericardial effusion. Lungs and pleural spaces: There is no airspace consolidation or pleural effusion. The trachea and central airways are clear. Linear atelectasis is incidentally noted at the left lung base. Mediastinum: There is no mediastinal lymphadenopathy. Mami: Clear. Axillae: There is no axillary lymphadenopathy. Upper abdomen: Partially visualized upper abdominal viscera is within normal limits. Skeletal structures: The skeletal structures are osteopenic. Again seen is an impacted fracture of the right humeral neck which extends through the greater tuberosity of the humeral head. No lytic or blastic bony lesions are seen. IMPRESSION: 1. There is no evidence of pulmonary embolus in the main, lobar, or segmental pulmonary arteries. 2. The lungs are clear. 3. A right proximal humeral fracture is again noted. Electronically signed by: Tuan Duarte M.D. 01/24/2017 6:16 PM Dictated Date/Time: 01/24/2017 6:13 PM
[2017-01-24 18:40] VITALS: BP 107/68; PULSE 72; O2SAT 99
== END 2017-01-24 18:41 | disposition home or self-care (01) ==
LOC: C.EDB 15:54 → C.EDC 18:41
DX: R07.2 Precordial pain (principal); K21.9 Gastro-esophageal reflux disease without esophagitis

== ENCOUNTER → 2017-01-27 | Outpatient (CLI) | payer BC ==
[~2017-01-27] MED LIST changes: +FAMO1TAB47 PO; -OXYC1TAB3 PO
--- NOTE | 2017-01-27 10:51 | DIAGNOSTIC IMAGING REPORT ---
ULTRASOUND RIGHT UPPER QUADRANT ABDOMEN CLINICAL HISTORY: Right upper quadrant abdominal pain. COMPARISON STUDY: Abdominal ultrasound dated 09/13/2006. TECHNIQUE: Real-time, grayscale, and color flow sonography of the right upper quadrant of the abdomen was performed. Images are reviewed in the transverse and longitudinal planes. FINDINGS: Liver: The liver is normal in size and echotexture. There is no intrahepatic biliary ductal dilatation. The main portal vein is patent. Gallbladder: The gallbladder is normal in appearance. No gallstones are identified. There is no gallbladder wall thickening or pericholecystic fluid. A sonographic Villatoro's sign is reportedly absent. The common bile duct measures up to 0.5 cm in diameter. Pancreas: Visualized portions of the pancreatic head and body are normal in appearance. Right kidney: Survey images of the right kidney demonstrate normal size and echotexture. There is no hydronephrosis. Ascites: None. IMPRESSION: Unremarkable sonographic assessment of the right upper quadrant. No gallstones are seen. Electronically signed by: Tuan Duarte M.D. 01/27/2017 10:49 AM Dictated Date/Time: 01/27/2017 10:48 AM
== END | disposition home or self-care (01) ==
LOC: C.ULTR 10:17
PROVIDERS: ATTEND Nurse Practitioner Family
DX: R10.11 Right upper quadrant pain (principal)

== ENCOUNTER → 2017-04-07 | Outpatient (CLI) | payer BC ==
--- NOTE | 2017-04-07 12:31 | DIAGNOSTIC IMAGING REPORT ---
PELVIS NO IV/ORAL CONT (CT) CLINICAL HISTORY: R10.9 pain TECHNIQUE: Transaxial acquisition with multi axial reformatted images COMPARISON STUDY: None FINDINGS: Negative CT of the pelvis. Nonobstructive bowel pattern. Bladder is midline. Several pelvic vascular calcifications. No free fluid within the cul-de-sac. IMPRESSION: No acute process of the pelvis The above report was generated using voice recognition software. It may contain grammatical, syntax or spelling errors. Electronically signed by: Elroy Lares M.D. 04/07/2017 12:30 PM Dictated Date/Time: 04/07/2017 12:25 PM
== END | disposition home or self-care (01) ==
LOC: C.CTS 11:54
PROVIDERS: ATTEND Family Medicine
DX: R10.9 Unspecified abdominal pain (principal)

== ENCOUNTER → 2017-04-12 | Outpatient (CLI) | payer BC ==
--- NOTE | 2017-04-12 15:22 | DIAGNOSTIC IMAGING REPORT ---
CHEST 2 VIEWS ROUTINE CLINICAL HISTORY: CHEST PAIN dyspnea COMPARISON STUDY: 01/24/2017 FINDINGS: The bones soft tissues and hemidiaphragms are normal. The cardiomediastinal silhouette is normal. The lungs are clear. The pulmonary vasculature is normal. IMPRESSION: Negative chest. The above report was generated using voice recognition software. It may contain grammatical, syntax or spelling errors. Electronically signed by: Elroy Lares M.D. 04/12/2017 3:20 PM Dictated Date/Time: 04/12/2017 3:20 PM
== END | disposition home or self-care (01) ==
LOC: C.RAD1850 14:35
PROVIDERS: ATTEND Family Medicine
DX: R07.9 Chest pain, unspecified (principal)

== ENCOUNTER → 2017-04-12 | Outpatient (CLI) | payer BC ==
--- NOTE | 2017-04-13 07:54 | MAMMOGRAPHY REPORT ---
BILATERAL DIGITAL SCREENING MAMMOGRAM TOMOSYNTHESIS WITH CAD: 04/12/2017 CLINICAL HISTORY: Routine screening. Patient has no complaints. TECHNIQUE: Breast tomosynthesis in addition to standard 2D mammography was performed. Current study was also evaluated with a Computer Aided Detection (CAD) system. COMPARISON: Comparison is made to exams dated: 12/18/2015 mammogram, 11/19/2014 mammogram, 11/13/2013 [place], 11/04/2012 mammogram, 11/03/2011 mammogram, and 10/27/2010 mammogram - [facility] ter. BREAST COMPOSITION: There are scattered areas of fibroglandular density in both breasts. FINDINGS: The parenchymal pattern is unchanged. No developing mass, architectural distortion or clus ter of suspicious microcalcifications is seen in either breast. IMPRESSION: ACR BI-RADS CATEGORY 2: BENIGN There is no mammographic evidence of malignancy. A 1 year screening mammogram is recommended. The pa tient will receive written notification of the results. Approximately 10% of breast cancers are not detected with mammography. A negative mammographic report should not delay biopsy if a clinically suggestive mass is present. Clarissa Maldonado M.D. ay/:04/12/2017 16:15:34 Button Tufting Machine Operator: Lois WHITLOCK(Joya)(Carley), [facility] letter sent: Normal 1/2 BI-RADS Code: ACR BI-RADS Category 2: Benign
== END | disposition home or self-care (01) ==
LOC: C.MAMM 09:39
PROVIDERS: ATTEND Obstetrics & Gynecology
DX: Z12.31 Encounter for screening mammogram for malignant neoplasm of breast (principal)

== ENCOUNTER → 2017-06-09 | Outpatient (CLI) | payer BC | END | disposition home or self-care (01) | LOC: C.LABSPEC 16:47 | PROVIDERS: ATTEND Student in an Organized Health Care Education/Training Program | DX: R82.90 Unspecified abnormal findings in urine (principal) ==

== ENCOUNTER → 2017-11-18 | Outpatient (CLI) | payer OTHER | END | disposition home or self-care (01) | LOC: C.PAPS 13:35 | PROVIDERS: ATTEND Obstetrics & Gynecology | DX: Z12.4 Encounter for screening for malignant neoplasm of cervix (principal) ==